=== PATIENT | female | born 1990 | race Two or more races ===

== ENCOUNTER 2023-07-08 19:59 | Emergency (ER) | payer MEDICAID, OTHER ==
[~2023-07-08] VITALS: Ht 157.5 cm; Wt 86.3 kg
[2023-07-08 21:21] LABS: Base Excess 3.3 mmol/L (-2.0-2.0)
[2023-07-08 22:09] LABS: Alanine Aminotransferase 123 U/L (7-40); Albumin 4.9 g/dL (3.2-4.8); Alkaline Phosphatase 157 U/L (46-116); Anion Gap 11 (5-15); Aspartate Aminotransferase 79 U/L (13-40); Bilirubin, Total 0.4 mg/dL (0.2-1.0); Blood Urea Nitrogen 6 mg/dL (9-23); Calcium 9.5 mg/dL (8.7-10.4); Carbon Dioxide 22 mmol/L (20-30); Chloride 106 mmol/L (98-107); Glucose 114 mg/dL (74-106); Potassium 4.2 mmol/L (3.5-5.1); Sodium 139 mmol/L (136-145); Total Protein 8.8 g/dL (5.7-8.2)
[2023-07-08 22:44] LABS: Basophils # (auto) 0.1 10 ^3/uL (0-0.2); Basophils % (auto) 0.6 % (0.0-2.0); Eosinophils # (auto) 0.3 10 ^3/uL (0-0.8); Eosinophils % (auto) 3.3 % (0.0-7.0); Hematocrit 39.8 % (36.0-46.0); Hemoglobin 13.3 g/dL (12.2-16.2); Lymphocytes # (auto) 2.3 10 ^3/uL (0.4-5.4); Lymphocytes % (auto) 26.8 % (10.0-50.0); Mean Corpuscular Hemoglobin 28.1 pg (28.0-32.0); Mean Corpuscular Hgb Conc. 33.3 g/dL (32.0-36.0); Mean Corpuscular Volume 84.3 fL (80.0-100.0); Monocytes # (auto) 0.7 10 ^3/uL (0-1.3); Monocytes % (auto) 8.5 % (0.0-12.0); Neutrophils # (auto) 5.3 10 ^3/uL (1.6-8.6); Neutrophils % (auto) 60.8 % (37.0-80.0); Nucleated Red Blood Cells % 0.1 %; Red Blood Cells 4.73 10^6/uL (4.0-5.20); Red Cell Distribution Width 13.6 % (11.8-14.3); White Blood Cell 8.6 10^3/uL (4.4-10.8)
[2023-07-09 00:08] VITALS: BP 113/73; PULSE 94; RESP 16; TEMP 98.3; O2SAT 99
[2023-07-09 00:21] LABS: Base Excess -1.6 mmol/L (-2.0-2.0)
== END 2023-07-09 01:34 | disposition home or self-care (01) ==
LOC: ER 19:59
DX: T58.2X1A Toxic effect of carbon monoxide from incomplete combustion of other domestic fuels, accidental (unintentional), initial encounter (principal); Y92.098 Other place in other non-institutional residence as the place of occurrence of the external cause
CPT/HCPCS: 36415; 36600; 80053; 82805; 93005